=== PATIENT | male | born 1985 | race African-American/Black ===

== ENCOUNTER 2019-07-11 02:56 | Emergency (ER) | payer OTHER ==
[~2019-07-11] VITALS: Ht 203.2 cm; Wt 88.6 kg
[~2019-07-11 02:56] MED LIST: HYDR-3498 PO; IBUP-1542 PO; NAPR-985 PO
[2019-07-11 03:02] VITALS: BP 143/91; PULSE 71; RESP 18; Ht 203.2 cm; Wt 88.6 kg
[2019-07-11] MEDS ORDERED: IBUPROFEN 600 MG TAB PO ONE (03:30)
[2019-07-11] MEDS ORDERED: HYDROCODONE/APAP (5/325) TAB PO ONE (03:30)
== END 2019-07-11 05:14 | disposition home or self-care (01) ==
LOC: FTE 02:56
DX: S93.401A Sprain of unspecified ligament of right ankle, initial encounter (principal); F17.210 Nicotine dependence, cigarettes, uncomplicated; X50.1XXA Overexertion from prolonged static or awkward postures, initial encounter; Y92.310 Basketball court as the place of occurrence of the external cause
CPT/HCPCS: 84560